=== PATIENT | female | born 1985 | race Caucasian/White ===

== ENCOUNTER 2017-07-24 19:53 | Emergency (ER) | payer OTHER, SELFPAY ==
[2017-07-24 20:09] VITALS: BP 155/88; PULSE 114; RESP 20; TEMP 36.6; O2SAT 99
[2017-07-24 20:12] VITALS: PULSE 114; RESP 20; TEMP 36.6; O2SAT 99; BMI 39.0
--- NOTE | 2017-07-24 20:22 | DI.US.S_ITS ---
PROCEDURE: US PERIPH VENOUS LOW EXTREM LT INDICATIONS: CALF PAIN TECHNIQUE: Real-time imaging, as well as color and pulse Doppler interrogation, were performed of the lower extremity deep veins from the inguinal ligament to the popliteal fossa. COMPARISON: [facility], [facility], 06/01/2017, 21:08. FINDINGS: The deep veins are normally compressible, and free of intraluminal thrombus. Color and pulse Doppler demonstrate normal phasic intraluminal flow. There is normal augmentation response to distal compression maneuver. IMPRESSION: There is no sonographic evidence of deep venous thrombus in the left lower extremity. Dictated by: Ja Morales M.D. on 07/24/2017 at 21:03 Approved by: Ja Morales M.D. on 07/24/2017 at 21:04
--- NOTE | 2017-07-24 20:45 | ED_ITS ---
HPI - Extremity Problem <KELLI Rodríguez - Last Filed: 07/24/17 22:33> General Chief complaint: Extremity Problem,Nontraumatic Stated complaint: BRUISE ON LEFT LEG Time Seen by Provider: 07/24/17 20:11 History of Present Illness HPI Narrative: 32-year-old female approximately 26 weeks 8 para 3 here for complaint of having bruise to the medial aspect of the of left leg. Just distal to the knee. She denies any trauma to the area. She states that she has also had some calf pain over the past couple of days. She reports that she was sent here by her OB for further evaluation as she has elevated platelets and is concerned for blood clot. She denies any prior history of having DVT or PE. She denies any abdominal pain. No vaginal bleeding or discharge. No urinary symptoms. No other concerns or complaints. She denies any shortness of breath or chest pain patient is ambulatory into the emergency room. MD Complaint: extremity pain Location: left and lower extremity Related Data Home Medications Medication Instructions Recorded Confirmed aspirin 81 mg PO QDAY #0 05/07/16 07/24/17 vit-iron fum-folic ac 1 cap PO QDAY #0 03/15/17 07/24/17 [Mynatal] Allergies Allergy/AdvReac Type Severity Reaction Status Date / Time codeine [CODEINE] Allergy Severe SWELLING Verified 07/24/17 20:14 SKIN Review of Systems <KELLI Rodríguez - Last Filed: 07/24/17 22:33> Constitutional Denies chills, Denies fever(s), Denies lethargy and Denies weakness Eyes Denies change in vision, Denies eye discharge, Denies irritation and Denies loss of vision ENT Ears, Nose, Mouth, and Throat: Denies change in voice, Denies neck pain and Denies sore throat Cardiovascular Denies dyspnea and Denies dyspnea on exertion Respiratory Denies cough, Denies dyspnea, Denies dyspnea on exertion and Denies wheezing Genitourinary Denies abnormal vaginal bleeding, Denies hematuria, Denies flank pain, Denies urinary incontinence, Denies urinary urgency and Denies vaginal discharge Musculoskeletal Denies neck pain Comments: Ecchymosis to of left lower leg and left calf pain Integumentary/Breasts Denies pruritus, Denies erythema, Denies rash and Denies wounds Neurologic Denies loss of vision and Denies weakness Allergic/Immunologic Denies wheezing Exam <KELLI Rodríguez - Last Filed: 07/24/17 22:33> Initial Vital Signs Initial Vital Signs: Vital Signs Temperature 97.8 F 07/24/17 20:09 Pulse Rate 114 H 07/24/17 20:09 Respiratory Rate 20 07/24/17 20:09 Blood Pressure 155/88 H 07/24/17 20:09 Pulse Oximetry 99 07/24/17 20:09 Const General: cooperative and well developed Nutritional Appearance: well nourished Orientation: alert, awake, oriented x3 and not confused Eyes Conjunctivae: conjunctivae normal Sclera: sclerae normal Pupils: PERRL EOM: EOM intact bilaterally Resp Effort & Inspection: normal respiratory effort, able to speak in complete sentences, no respiratory distress and no use of accessory muscles Auscultation: clear to auscultation bilaterally, no rales, no rhonchi and no wheezes Cardio Rate: regular rate Rhythm: regular rhythm Heart Sounds: no click, no gallops, no murmurs and no rubs Pulses: dorsalis pedis present GI Palpation: soft, no hepatosplenomegaly, No guarding, No pulsatile mass and No tender Auscultation: normal bowel sounds Skin General: no rashes or lesions noted Extrem Other: 2 cm x 3 cm area ecchymosis to the left medial aspect of the left leg inferior to left knee. No swelling no deformities. Distal sensation is intact. Range of motion is intact. Distal pulses intact. No edema. Homans sign negative. no erythema <Carmelo Segura MD - Last Filed: 07/25/17 03:23> Initial Vital Signs Initial Vital Signs: Vital Signs Temperature 97.8 F 07/24/17 20:09 Pulse Rate 114 H 07/24/17 20:09 Respiratory Rate 20 07/24/17 20:09 Blood Pressure 155/88 H 07/24/17 20:09 Pulse Oximetry 99 07/24/17 20:09 Course <KELLI Rodríguez - Last Filed: 07/24/17 22:33> Orders Ordered: ED Orders 07/24/17 20:22 US periph venous low extrem lt Stat 07/24/17 21:10 Complete Blood Count AUTO DIFF Stat Comprehensive Metabolic Panel Stat Prothrombin Time INR Stat Discontinued Medications Acetaminophen (Tylenol) 650 mg PO NOW ONE Stop: 07/24/17 21:30 Last Admin: 07/24/17 21:33 Dose: 650 mg Vital Signs - 8 hr 07/24/17 20:09 07/24/17 20:12 07/24/17 22:13 Temperature 97.8 F 97.8 F Pulse Rate 114 H 114 H 102 H Respiratory Rate 20 20 18 Blood Pressure [Left Arm] 120/74 Blood Pressure [Right Arm] 155/88 H Pulse Oximetry 99 99 100 <Carmelo Segura MD - Last Filed: 07/25/17 03:23> Orders Ordered: ED Orders 07/24/17 20:22 periph venous low extrem lt Stat 07/24/17 21:10 Complete Blood Count AUTO DIFF Stat Comprehensive Metabolic Panel Stat Prothrombin Time INR Stat Discontinued Medications Acetaminophen (Tylenol) 650 mg PO NOW ONE Stop: 07/24/17 21:30 Last Admin: 07/24/17 21:33 Dose: 650 mg Vital Signs - 8 hr 07/24/17 20:09 07/24/17 20:12 07/24/17 22:13 Temperature 97.8 F 97.8 F Pulse Rate 114 H 114 H 102 H Respiratory Rate 20 20 18 Blood Pressure [Left Arm] 120/74 Blood Pressure [Right Arm] 155/88 H Pulse Oximetry 99 99 100 MDM - Extremity (Nontraumatic) <KELLI Rodríguez - Last Filed: 07/24/17 22:33> Lab Data Result diagrams: 07/24/17 21:10 07/24/17 21:10 Lab Results 07/24/17 07/24/17 07/24/17 Range/Units 21:10 21:10 21:10 WBC 17.9 H (4.5-11.0) X10^3/uL RBC 4.00 (4.0-5.2) X10^6/uL Hgb 11.8 L (12.0-16.0) g/dL Hct 34.5 L (36-46) % MCV 86.4 (80-100) fL MCH 29.6 (26-34) PG MCHC 34.2 (30-36) % RDW 14.2 (11.6-14.8) % Plt Count 448 H (150-400) X10^3/uL Neut % (Auto) 58.3 (50-75) % Lymph % (Auto) 32.1 (25-40) % [place] % (Auto) 6.6 (3-14) % Eos % (Auto) 2.1 (2-4) % Baso % (Auto) 0.9 (0-2) % Neut # (Auto) 06385 H (8420-8697) /uL PT 11.7 (10.1-12.7) SECONDS INR 1.1 (0.9-1.3) Sodium 138 (137-145) mmol/L Potassium 3.5 (3.4-5.1) mmol/L Chloride 104.0 (98-107) mmol/L Carbon Dioxide 22.0 (22-32) mmol/L BUN 5.0 L (7-17) mg/dL Creatinine 0.50 L (0.52-1.04) mg/dL Estimated GFR > 60.0 (>60) mL/min BUN/Creatinine Ratio 10.0 (6-22) Glucose 130 H (70-100) mg/dL Calcium 9.2 (8.4-10.2) mg/dL Total Bilirubin 0.2 (0.2-1.3) mg/dL AST 19 (14-36) IU/L ALT 23 (9-52) IU/L Alkaline Phosphatase 80 (38-126) U/L Total Protein 6.6 (6.3-8.2) g/dL Albumin 3.4 L (3.5-5.0) g/dL Globulin 3.2 (1.7-4.1) g/dL Albumin/Globulin Ratio 1.1 (1.0-2.8) Imaging Data Venous US: Radiologist's impression: PROCEDURE: US PERIPH VENOUS LOW EXTREM LT INDICATIONS: CALF PAIN TECHNIQUE: Real-time imaging, as well as color and pulse Doppler interrogation, were performed of the lower extremity deep veins from the inguinal ligament to the popliteal fossa. COMPARISON: [facility], [facility], 06/01/2017, 21:08. FINDINGS: The deep veins are normally compressible, and free of intraluminal thrombus. Color and pulse Doppler demonstrate normal phasic intraluminal flow. There is normal augmentation response to distal compression maneuver. IMPRESSION: There is no sonographic evidence of deep venous thrombus in the left lower extremity. Dictated by: Ja Morales M.D. on 07/24/2017 at 21:03 Approved by: Ja Morales M.D. on 07/24/2017 at 21:04 [facility] Narrative Medical decision making narrative: Ultrasound of left lower extremity was obtained was negative for any signs of DVT or acute findings. CBC shows elevated white count and platelets however is consistent with her prior levels. Chem panel was obtained and was unremarkable. Urinalysis was negative. heart tones were normal. Signs and symptoms presents as minor ecchymosis to the left lower extremity most likely from a trauma that patient does not remember. She is encouraged to follow up with her primary care provider. Return emergency room for worsening symptoms. <Carmelo Segura MD - Last Filed: 07/25/17 03:23> Lab Data Lab Results 07/24/17 07/24/17 07/24/17 Range/Units 21:10 21:10 21:10 WBC 17.9 H (4.5-11.0) X10^3/uL RBC 4.00 (4.0-5.2) X10^6/uL Hgb 11.8 L (12.0-16.0) g/dL Hct 34.5 L (36-46) % MCV 86.4 (80-100) fL MCH 29.6 (26-34) PG MCHC 34.2 (30-36) % RDW 14.2 (11.6-14.8) % Plt Count 448 H (150-400) X10^3/uL Neut % (Auto) 58.3 (50-75) % Lymph % (Auto) 32.1 (25-40) % [place] % (Auto) 6.6 (3-14) % Eos % (Auto) 2.1 (2-4) % Baso % (Auto) 0.9 (0-2) % Neut # (Auto) 68630 H (2956-4219) /uL PT 11.7 (10.1-12.7) SECONDS INR 1.1 (0.9-1.3) Sodium 138 (137-145) mmol/L Potassium 3.5 (3.4-5.1) mmol/L Chloride 104.0 (98-107) mmol/L Carbon Dioxide 22.0 (22-32) mmol/L BUN 5.0 L (7-17) mg/dL Creatinine 0.50 L (0.52-1.04) mg/dL Estimated GFR > 60.0 (>60) mL/min BUN/Creatinine Ratio 10.0 (6-22) Glucose 130 H (70-100) mg/dL Calcium 9.2 (8.4-10.2) mg/dL Total Bilirubin 0.2 (0.2-1.3) mg/dL AST 19 (14-36) IU/L ALT 23 (9-52) IU/L Alkaline Phosphatase 80 (38-126) U/L Total Protein 6.6 (6.3-8.2) g/dL Albumin 3.4 L (3.5-5.0) g/dL Globulin 3.2 (1.7-4.1) g/dL Albumin/Globulin Ratio 1.1 (1.0-2.8) MDM Narrative Medical decision making narrative: The PA/HEALTHCARE BUSINESS ANALYST functioned independently for the care of this pt, I was available, but not asked to participate in care. I am unable to determine appropriateness of management without personally examining the pt. Discharge Plan Departure Patient Disposition: Home, Self-Care Clinical Impression: Contusion of left leg Discharge Date/Time: 07/25/17 01:03 Interventions: ED Discharge Assessment Last Done: 07/24/17 22:20 Instructions: DI for Contusion Activity Restrictions/Additional Instructions: Ultrasound was negative for any blood clots. CBC shows elevated platelets and white count however is consistent with prior lab values. Other results were unremarkable. Signs and symptoms presents as a minor bruise to the left leg. Follow up with her primary care provider for re-evaluation. Use Tylenol as needed for any discomfort. Return emergency room for any worsening symptoms. Prescriptions: No Action aspirin 81 MG tablet,delayed release (DR/EC) 81 mg PO QDAY Qty: 0 RF: 0 vit-iron fum-folic ac [Mynatal] 1 EACH capsule 1 cap PO QDAY Qty: 0 RF: 0 Referrals: Horacio Boone MD [Primary Care Provider] -
[2017-07-24 21:18] LABS: Add Manual Diff / Slide Review NO; Basophils Percent Auto 0.9 % (0-2); Eosinophils Percent Auto 2.1 % (2-4); Hematocrit 34.5 % (36-46); Hemoglobin 11.8 g/dL (12.0-16.0); Lymphocytes Percent Auto 32.1 % (25-40); Mean Corpuscular HGB Conc 34.2 % (30-36); Mean Corpuscular Hemoglobin 29.6 PG (26-34); Mean Corpuscular Volume 86.4 fL (80-100); Monocytes Percent Auto 6.6 % (3-14); Neutrophils Absolute Auto 10400 /uL (3000-5900); Neutrophils Percent Auto 58.3 % (50-75); Platelet Count 448 X10^3/uL (150-400); Red Cell Distribution Width 14.2 % (11.6-14.8); White Blood Cell Count 17.9 X10^3/uL (4.5-11.0)
[2017-07-24 21:23] LABS: INR 1.1 (0.9-1.3); Prothrombin Time 11.7 SECONDS (10.1-12.7)
--- NOTE | 2017-07-24 21:23 | PC.NURSE ---
Pt has had a sore knee for about a week and noticed a small, quarter sized bruise on the medial aspect of the left knee. Denies any other symptoms other than a headache.
[2017-07-24 21:29] LABS: Alanine Aminotransferase 23 IU/L (9-52); Albumin 3.4 g/dL (3.5-5.0); Albumin Globulin Ratio 1.1 (1.0-2.8); Alkaline Phosphatase 80 U/L (38-126); Aspartate Aminotransferase 19 IU/L (14-36); Bilirubin Total 0.2 mg/dL (0.2-1.3); Calcium 9.2 mg/dL (8.4-10.2); Estimated Glomerular Filt Rate > 60.0 mL/min (>60); Globulin 3.2 g/dL (1.7-4.1); Glucose 130 mg/dL (70-100); HEMOLYSIS < 15 (0-50); Potassium 3.5 mmol/L (3.4-5.1); Sodium 138 mmol/L (137-145); Total Protein 6.6 g/dL (6.3-8.2)
[2017-07-24] MEDS: ACETAMINOPHEN 325 MG TABLET 650 MG PO (21:33)
[2017-07-24 22:13] VITALS: BP 120/74; PULSE 102; RESP 18; O2SAT 100
== END 2017-07-25 01:03 | disposition home or self-care (01) ==
PROVIDERS: Emergency Provider Nurse Practitioner Family
DX: S80.12XA Contusion of left lower leg, initial encounter (principal); Z3A.26 26 weeks gestation of pregnancy
CPT/HCPCS: 80053; 81003; 85025; 85610; 93971; 99283; 99284

== ENCOUNTER 2018-01-31 22:48 | Inpatient (IN) | payer OTHER, SELFPAY ==
[2018-01-31 22:54] VITALS: BP 133/68; PULSE 140; RESP 18; TEMP 37.8; O2SAT 99; BMI 34.0
[2018-01-31] MEDS: SODIUM CHLORIDE 0.9% 1,000 ML 1000 ML IV (23:05)
--- NOTE | 2018-01-31 23:28 | PC.NURSE ---
2 episodes of strep throat in past month, treated with antibiotics. Tonsils appear red and swollen.
[2018-01-31 23:31] LABS: Hematocrit 37.8 % (36-46); Hemoglobin 12.2 g/dL (12.0-16.0); Mean Corpuscular HGB Conc 32.4 % (30-36); Mean Corpuscular Hemoglobin 27.2 PG (26-34); Platelet Count 594 X10^3/uL (150-400); White Blood Cell Count 26.7 X10^3/uL (4.5-11.0)
[2018-01-31 23:33] LABS: Add Manual Diff / Slide Review YES
[2018-01-31 23:43] LABS: Alanine Aminotransferase 36 IU/L (9-52); Albumin 4.1 g/dL (3.5-5.0); Albumin Globulin Ratio 1.2 (1.0-2.8); Alkaline Phosphatase 84 U/L (38-126); Aspartate Aminotransferase 28 IU/L (14-36); Bilirubin Total 0.2 mg/dL (0.2-1.3); Blood Urea Nitrogen 9 mg/dL (7-17); Calcium 9.2 mg/dL (8.4-10.2); Carbon Dioxide 27 mmol/L (22-32); Chloride 101 mmol/L (98-107); Creatine Kinase 34 U/L (30-135); Estimated Glomerular Filt Rate > 60.0 mL/min (>60); Globulin 3.4 g/dL (1.7-4.1); Glucose 151 mg/dL (70-100); HEMOLYSIS < 15 (0-50); Lipase 78 U/L (23-300); Sodium 140 mmol/L (137-145); Total Protein 7.5 g/dL (6.3-8.2)
[2018-01-31 23:50] LABS: Troponin I < 0.012 ng/mL (0.01-0.034)
[2018-01-31 23:53] VITALS: BP 124/56; PULSE 152; O2SAT 97
[2018-01-31 23:58] VITALS: TEMP 38.8
[2018-02-01] VITALS (18 sets, daily range): BP systolic 107–135; BP diastolic 54–79; PULSE 97–142; RESP 14–19; TEMP 36.5–38.8; O2SAT 96–100; BMI 34.0
[2018-02-01] MEDS: ACETAMINOPHEN 325 MG TABLET 650 MG PO ×4 (00:21→22:55)
--- NOTE | 2018-02-01 00:24 | DI.CT.S_ITS ---
PROCEDURE: CT ANGIO CHEST PE PROTOCOL INDICATIONS: CP, SOB, hypoxia TECHNIQUE: After the administration of intravenous contrast, 2 mm thick sections acquired from the pulmonary apices to the posterior costophrenic angles. 3-dimensional maximum intensity projection (MIP) coronal and sagittal reformats were then acquired through the thorax. For radiation dose reduction, the following was used: automated exposure control, adjustment of mA and/or kV according to patient size. COMPARISON: None. FINDINGS: Image quality: Excellent. Pulmonary arteries: Pulmonary arteries are normal in size, and demonstrate no intraluminal filling defects to suggest central pulmonary embolism. Lungs and pleura: Lungs are clear. No pleural effusions or pneumothorax. Central and peripheral airways are patent. Mediastinum: Heart size is normal, without pericardial effusion. No mediastinal or hilar adenopathy. Thoracic aorta is normal in caliber and enhancement. Esophagus is normal in caliber, without hiatal hernia. Bones and chest wall: No suspicious bony lesions. Ribs and thoracic spine appear intact throughout. Thyroid gland and shows visualization of only the right lobe. Within the left thyroid fossa there is what appears to be a lymph node measuring 8 mm in short axis. No priors are available for comparison.. No axillary or supraclavicular adenopathy. Abdomen: Visualized upper abdominal solid organs appear normal in the early arterial phase of enhancement. IMPRESSION: 1. No pulmonary embolism. 2. Lungs are clear. 3. Nonvisualization of the left thyroid lobe which appears to be a lymph node in the thyroid bed. As clinically indicated, thyroid ultrasound may be obtained for additional evaluation. Dictated by: Chelita Dewitt M.D. on 02/01/2018 at 7:55 Approved by: Chelita Dewitt M.D. on 02/01/2018 at 7:58
[2018-02-01 00:49] LABS: Lactate (Lactic Acid) 1.5 mmol/L (0.7-2.1)
[2018-02-01 00:58] LABS: RBC Urine None Seen (0-5/HPF)
[2018-02-01] MEDS: SODIUM CHLORIDE 0.9% 1,000 ML 1000 ML IV ×2 (01:01→03:23)
[2018-02-01] MEDS: KETOROLAC 60 MG/2 ML VIAL 15 MG IV (01:02)
[2018-02-01 01:27] LABS: Bacteria Urine Few (2-10); Culture Indicated Urine Specimen Cultured; Squamous Epithelial Cell Urine 0-1 /HPF; WBC Urine 1-5/HPF (0-5/HPF)
[2018-02-01 01:57] LABS: Anisocytosis 2+
--- NOTE | 2018-02-01 02:06 | ED.SYNCOPE ---
HPI - Syncope General Chief Complaint: Syncope Stated Complaint: Syncope Time Seen by Provider: 01/31/18 23:00 Source: patient and EMS Mode of arrival: EMS Limitations: no limitations History of Present Illness HPI narrative: 32-year-old nonsmoking female presents by EMS for evaluation of a near syncopal episode. The patient was in her normal state of health yesterday and over the course of the day has started feeling very poorly and developed fever and shaking chills. She was so chilled that she decided to take a warm bath and upon exiting the bath she felt even worse, dizzy and lightheaded. She admittedly has had a very poor appetite today and has had very little to eat or drink. She attempted to have a bowel movement and while straining on the toilet felt dizzy and lightheaded and may have briefly syncopized. She called EMS and on their arrival they found her heart rate to be in the 150s. She denies much in the way of specific symptoms such as runny nose, sore throat or cough. She has had no chest pain or shortness of breath and denies nausea or vomiting. She has had 2 episodes of strep in the past month which cause some concern as 1 was not group a. 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 MD complaint: felt faint Onset (ago): hour(s) -: second(s) Prodromal symptoms: none Witnessed: no Current symptoms: lightheaded Treatments prior to arrival: IV fluids Related Data Allergies Allergy/AdvReac Type Severity Reaction Status Date / Time codeine [CODEINE] Allergy Severe SWELLING Verified 07/24/17 20:14 SKIN Review of Systems Review of Systems All systems reviewed & are unremarkable except as noted in HPI and below Constitutional Reports chills, Reports fever(s), Denies lethargy and Reports weakness Eyes Denies change in vision, Denies eye discharge, Denies irritation and Denies loss of vision ENT Ears, Nose, Mouth, and Throat: Denies change in voice, Denies neck pain and Denies sore throat Cardiovascular Denies chest pain, Denies irregular heart rhythm, Denies lightheadedness, Denies palpitations, Denies dyspnea, Denies dyspnea on exertion and Denies orthopnea Respiratory Denies cough, Denies dyspnea, Denies dyspnea on exertion and Denies wheezing Gastrointestinal Gastrointestinal: Denies abdominal pain, Denies change in bowel habits, Denies diarrhea, Denies nausea and Denies vomiting Genitourinary Denies hematuria, Denies flank pain, Denies urinary incontinence and Denies urinary urgency Musculoskeletal Denies neck pain Integumentary/Breasts Denies pruritus, Denies erythema, Denies rash and Denies wounds Neurologic Denies confusion, Denies loss of vision and Reports weakness Psychiatric Denies anxiety, Denies confusion, Denies depression, Denies homicidal ideation and Denies suicidal ideation Endocrine Denies palpitations Hematologic/Lymphatic Denies easy bruising Allergic/Immunologic Denies wheezing [facility] Social History Smoking Status: Never smoker Exam Narrative Exam Narrative: GENERAL: 32-year-old female in good spirits but obviously ill HEAD: Atraumatic. Normocephalic. No temporal or scalp tenderness. EYES: Pupils equal round and reactive. Extraocular motions intact. No scleral icterus. No injection or drainage. ENT: Nose without bleeding, purulent drainage or septal hematoma. Throat without erythema, tonsillar hypertrophy or exudate. Uvula midline. Airway patent. NECK: Trachea midline. No JVD or lymphadenopathy. Supple, nontender, no meningeal signs. CARDIOVASCULAR: Tachycardic and irregular without murmurs, gallops, or rubs. RESPIRATORY: Clear to auscultation. Breath sounds equal bilaterally. No wheezes, rales, or rhonchi. GASTROINTESTINAL: Abdomen soft, non-tender, nondistended. No hepato-splenomegaly, or palpable masses. No guarding. EXTREMITIES: No clubbing, cyanosis, or edema. No joint tenderness, effusion, or edema noted. BACK: Nontender without deformity or crepitance. No flank tenderness. NEURO: AOx3. SKIN: No rash or erythema. Initial Vital Signs Initial Vital Signs: Vital Signs Temperature 100.1 F H 01/31/18 22:54 Pulse Rate 140 H 01/31/18 22:54 Respiratory Rate 18 01/31/18 22:54 Blood Pressure 133/68 01/31/18 22:54 Pulse Oximetry 99 01/31/18 22:54 Course Orders Ordered: ED Orders 01/31/18 23:00 EKG-12 Lead Stat 01/31/18 23:15 Complete Blood Count AUTO DIFF Stat Comprehensive Metabolic Panel Stat Lipase Stat Troponin & CK Cardiac Panel Stat 01/31/18 23:57 Urine Culture Stat 02/01/18 00:24 CT angio chest PE protocol Stat 02/01/18 00:27 Lactate (Lactic Acid) Stat 02/01/18 00:30 Blood Culture Stat 02/01/18 00:51 Urine Microscopic Stat 02/01/18 02:51 FLU A and B [Influenza A and B by PCR Rapid] Stat 02/01/18 04:10 Consult to Discharge Planning Routine 02/01/18 06:00 Basic Metabolic Panel DAILY Complete Blood Count AUTO DIFF DAILY HCG Quantitative Routine 02/02/18 06:00 Basic Metabolic Panel DAILY Complete Blood Count AUTO DIFF DAILY 02/03/18 06:00 Basic Metabolic Panel DAILY Complete Blood Count AUTO DIFF DAILY Enoxaparin Sodium (Lovenox) 40 mg SUBCUT DAILY RUSH Sodium Chloride (Normal Saline 0.9%) 1,000 mls @ 150 mls/hr IV CONT RUSH Last Infusion: 02/01/18 00:08 Dose: 0 mls/hr Admin: 01/31/18 23:05 Dose: 1,000 mls/hr Ondansetron HCl (Zofran) 4 mg IV Q8HR PRN PRN Reason: Nausea And Vomiting Discontinued Medications Acetaminophen (Tylenol) 650 mg PO NOW ONE Stop: 02/01/18 00:19 Last Admin: 02/01/18 00:21 Dose: 650 mg Sodium Chloride (Normal Saline 0.9%) 1,000 mls @ 1,000 mls/hr IV BOLUS ONE Stop: 02/01/18 01:22 Last Infusion: 02/01/18 02:45 Dose: 0 mls/hr Admin: 02/01/18 01:01 Dose: 1,000 mls/hr Ceftriaxone Sodium/Dextrose (Rocephin) 1 gm in 50 mls @ 100 mls/hr IV NOW ONE Stop: 02/01/18 02:31 Last Infusion: 02/01/18 03:17 Dose: 0 mls/hr Admin: 02/01/18 02:30 Dose: 100 mls/hr Vancomycin HCl 1,500 mg/ (Sodium Chloride) 500 mls @ 333.333 mls/hr IV NOW ONE Stop: 02/01/18 02:07 Last Infusion: 02/01/18 04:30 Dose: 0 mls/hr Admin: 02/01/18 03:43 Dose: 333.333 mls/hr Sodium Chloride (Normal Saline 0.9%) 1,000 mls @ 1,000 mls/hr IV BOLUS ONE Stop: 02/01/18 03:44 Last Infusion: 02/01/18 04:46 Dose: 1,000 mls/hr Admin: 02/01/18 03:23 Dose: 1,000 mls/hr Ketorolac Tromethamine (Toradol) 15 mg IV NOW ONE Stop: 02/01/18 00:24 Last Admin: 02/01/18 01:02 Dose: 15 mg Reevaluation(s) Reevaluation #1: patient states she is often tachycardic in the 110s and 120s and that her WBC count is routinely high. She's been evaluated by her PCP, but is unclear of any ongoing diagnoses. She had fever, tachycardia, and elevated WBCs, but never met criteria for severe sepsis Consultations Consultation #1: Project Landscape Architect is happy to accept Vital Signs - 8 hr 01/31/18 22:54 01/31/18 23:53 01/31/18 23:58 Temperature 100.1 F H 101.8 F H Pulse Rate 140 H 152 H Respiratory Rate 18 Blood Pressure 133/68 Blood Pressure [Left Arm] 124/56 L Pulse Oximetry 99 97 02/01/18 00:21 02/01/18 01:02 02/01/18 01:12 Temperature 101.8 F H 101.4 F H Pulse Rate 142 H Respiratory Rate 17 Blood Pressure Blood Pressure [Left Arm] 120/66 Pulse Oximetry 96 02/01/18 02:02 02/01/18 03:23 02/01/18 03:30 Temperature 98.8 F 98.8 F Pulse Rate 135 H 130 H Respiratory Rate 17 14 Blood Pressure Blood Pressure [Left Arm] 110/54 L 114/55 L Pulse Oximetry 97 97 MDM - Syncope Lab Data Attestation: I reviewed the patient's lab results. Result diagrams: 01/31/18 23:15 01/31/18 23:15 Lab Results 01/31/18 01/31/18 01/31/18 Range/Units 23:15 23:15 23:57 WBC 26.7 H (4.5-11.0) X10^3/uL RBC 4.50 (4.0-5.2) X10^6/uL Hgb 12.2 (12.0-16.0) g/dL Hct 37.8 (36-46) % MCV 84.0 (80-100) fL MCH 27.2 (26-34) PG MCHC 32.4 (30-36) % RDW 15.0 H (11.6-14.8) % Plt Count 594 H (150-400) X10^3/uL Neut % (Auto) Not Reportable Lymph % (Auto) Not Reportable [place] % (Auto) Not Reportable Eos % (Auto) Not Reportable Baso % (Auto) Not Reportable Seg Neutrophils % 82.0 H (38-70) % Lymphocytes % (Manual) 13.0 L (25-45) % Monocytes % (Manual) 3.0 (2-11) % Eosinophils % (Manual) 1.0 L (2-4) % Basophils % (Manual) 1.0 (0-1) % RBC Morphology See below Anisocytosis 2+ H Sodium 140 (137-145) mmol/L Potassium 4.0 (3.4-5.1) mmol/L Chloride 101 (98-107) mmol/L Carbon Dioxide 27 (22-32) mmol/L BUN 9 (7-17) mg/dL Creatinine 0.60 (0.52-1.04) mg/dL Estimated GFR > 60.0 (>60) mL/min BUN/Creatinine Ratio 15.0 (6-22) Glucose 151 H (70-100) mg/dL Lactate (0.7-2.1) mmol/L Calcium 9.2 (8.4-10.2) mg/dL Total Bilirubin 0.2 (0.2-1.3) mg/dL AST 28 (14-36) IU/L ALT 36 (9-52) IU/L Alkaline Phosphatase 84 (38-126) U/L Total Creatine Kinase 34 (30-135) U/L CK-MB (CK-2) TNP CK-MB (CK-2) Rel Index TNP Troponin I < 0.012 (0.01-0.034) ng/mL Total Protein 7.5 (6.3-8.2) g/dL Albumin 4.1 (3.5-5.0) g/dL Globulin 3.4 (1.7-4.1) g/dL Albumin/Globulin Ratio 1.2 (1.0-2.8) Lipase 78 (23-300) U/L Urine RBC None seen (0-5/HPF) Urine WBC 1-5/hpf (0-5/HPF) Ur Squamous Epith Cells 0-1 /hpf Urine Bacteria Few (2-10) H (None) Ur Culture Indicated? Specimen cultured Micro UA Comment Not Reportable Influenza A & B (PCR) (Negative) 02/01/18 02/01/18 Range/Units 00:27 02:51 WBC (4.5-11.0) X10^3/uL RBC (4.0-5.2) X10^6/uL Hgb (12.0-16.0) g/dL Hct (36-46) % MCV (80-100) fL MCH (26-34) PG MCHC (30-36) % RDW (11.6-14.8) % Plt Count (150-400) X10^3/uL Neut % (Auto) Lymph % (Auto) [place] % (Auto) Eos % (Auto) Baso % (Auto) Seg Neutrophils % (38-70) % Lymphocytes % (Manual) (25-45) % Monocytes % (Manual) (2-11) % Eosinophils % (Manual) (2-4) % Basophils % (Manual) (0-1) % RBC Morphology Anisocytosis Sodium (137-145) mmol/L Potassium (3.4-5.1) mmol/L Chloride (98-107) mmol/L Carbon Dioxide (22-32) mmol/L BUN (7-17) mg/dL Creatinine (0.52-1.04) mg/dL Estimated GFR (>60) mL/min BUN/Creatinine Ratio (6-22) Glucose (70-100) mg/dL Lactate 1.5 (0.7-2.1) mmol/L Calcium (8.4-10.2) mg/dL Total Bilirubin (0.2-1.3) mg/dL AST (14-36) IU/L ALT (9-52) IU/L Alkaline Phosphatase (38-126) U/L Total Creatine Kinase (30-135) U/L CK-MB (CK-2) CK-MB (CK-2) Rel Index Troponin I (0.01-0.034) ng/mL Total Protein (6.3-8.2) g/dL Albumin (3.5-5.0) g/dL Globulin (1.7-4.1) g/dL Albumin/Globulin Ratio (1.0-2.8) Lipase (23-300) U/L Urine RBC (0-5/HPF) Urine WBC (0-5/HPF) Ur Squamous Epith Cells Urine Bacteria (None) Ur Culture Indicated? Micro UA Comment Influenza A & B (PCR) Negative (Negative) Point of Care Testing Rapid Strep A Negative Glucose POC 154 Urine Dip Bedside Urine Glucose Negative Bedside Urine Bilirubin - Negative Bedside Urine Ketone - Negative Urine Specific [place] 1.010 Bedside Urine Occult Blood + Bedside Urine pH 7.5 Bedside Urine Protein - Negative Bedside Urine Urobilinogen - Negative Bedside Urine Nitrite - Negative Bedside Urine Leukocytes - Negative Esterase Imaging Data CT scan - chest: Radiologist's impression: No PE Discharge Plan Departure Interventions: ED Discharge Assessment Last Done: 02/01/18 04:49 Admit Date/Time: 02/01/18 03:42 Admit Provider: Lina Noyola
[2018-02-01] MEDS: CEFTRIAXONE 1 GM/50 ML FROZ.PIGGY IV (02:30)
[2018-02-01 03:09] LABS: Influenza A and B by PCR Rapid Negative (Negative)
[2018-02-01] MEDS: VANCOMYCIN 1,500 MG in SODIUM CHLORIDE 0.9% 500 ML 333.333 ML IV (03:43)
--- NOTE | 2018-02-01 03:48 | PC.NURSE ---
patient given 118ml of Grape juice and ice. provider ok with patient having something to drink. no new orders at this time.
--- NOTE | 2018-02-01 03:54 | PC.NURSE ---
patient given 118ml of grape juice. provider ok with patient to have something to drink. no new orders at this time.
--- NOTE | 2018-02-01 04:51 | PM.HP.1 ---
History of Present Illness Date Patient Seen: 02/01/18 Chief complaint: Syncope Narrative: PMH: splenic artery aneurysm 09/2013, h/o complicatd pregnancies (, stillbirth 1, miscarriage 2), h/o ectopic , thrombocytosis, iron deficiency anemia, gestational diabetes, obesity (BMI 34) PSH: splenectomy, cholecystectomy, x4, D&C The patient is a 32-year-old female who presented to the ED on 01/31/2018 at 2030 after experiencing a syncopal event. The event may have been witnessed by patient's , however she is not entirely sure. Prior to the event patient is taking a hot shower. Reports brief loss of consciousness. Syncopal event occurred while patient was attempting to defecate. Associated symptoms include nausea, sore throat, fever (102.1), and generalized malaise. Onset of associated symptoms is acute, started this morning. No injury to the head. No loss of bowel or bladder control. No history of seizures. No post event confusion or disorientation. No syncopal events in the past. In the past month patient was treated for two episodes of strep throat. At the end of December with a 10 day course of penicillin and once again, 2 weeks later, with a course of Augmentin. Patient reports adherence to oral antibiotic course. Patient does not have a history of recurrent pharyngitis. She is immunocompromised in the setting of a splenectomy. Patient has 4 children at home ages 3 months and 4, 10, and 16 y.o. will attend daycare. Patient's 4-year-old has been ill since Friday. No recent travel. Patient denies cough, conjunctivitis, rhinorrhea, dental infections, chest pain, pleurisy, exertional dyspnea, abdominal pain, gastrointestinal distress, myalgias, myopathy, or new rash. Status 3 months post-. She has had a 3 months ago, incision is approximated and well healed w/o s/s of an infection. Recently this past week patient has been packing, the family is getting ready to move to [place]. Reports some exposure to dust. Does not recall exposure to mold or other potential toxic organisms. Patient History Family & Social History Safety & Behavioral: Feels Safe in Current Yes Environment Tobacco & Substance use: Smoking Status Never smoker alcohol intake frequency 0-2 drinks per day Substance Use Type does not use Meds Allergies Allergy/AdvReac Type Severity Reaction Status Date / Time codeine [CODEINE] Allergy Severe SWELLING Verified 07/24/17 20:14 SKIN Review of Systems Review of Systems All systems reviewed & are unremarkable except as noted in HPI and below Exam Vital Signs (past 8 hours): - 01/31/18 22:54 01/31/18 23:53 01/31/18 23:58 Temperature 100.1 F H 101.8 F H Pulse Rate 140 H 152 H Respiratory Rate 18 Blood Pressure 133/68 Blood Pressure [Left Arm] 124/56 L Pulse Oximetry 99 97 02/01/18 00:21 02/01/18 01:02 02/01/18 01:12 Temperature 101.8 F H 101.4 F H Pulse Rate 142 H Respiratory Rate 17 Blood Pressure Blood Pressure [Left Arm] 120/66 Pulse Oximetry 96 02/01/18 02:02 02/01/18 03:23 02/01/18 03:30 Temperature 98.8 F 98.8 F Pulse Rate 135 H 130 H Respiratory Rate 17 14 Blood Pressure Blood Pressure [Left Arm] 110/54 L 114/55 L Pulse Oximetry 97 97 Oxygen Delivery Method Room Air Narrative Exam Narrative: Constitutional: NAD Neurologic: AOx3, no focal neurological deficits Head: NC, AT Eyes: Pupils equal and reactive, gaze conjugate, no conjunctivitis Ears: external ears normal, no otorrhea Nose: external nose normal, no rhinorrhea or epistaxis Throat: DRY MM, oropharynx inflamed / erythema (no overt drainage) Neck: Lymphadenopathy, anterior cervical Chest / Respiratory: equal chest rise, unlabored respiratory effort, no tachypnea, CTAB Heart / CV: S1S2, no murmur Abdomen / GI: round, NT, ND, + BS, no organomegaly, incision approximated and well healed no S/S of an infection : no suprapubic tenderness, no CVA Peripheral / Vascular: warm to touch, DP and PT pulses palpable, no edema Musc: full ROM of upper and lower extremities, adequate muscle tone and bulk Skin: no ecchymosis or rashes Objective Labs Result Diagrams: 01/31/18 23:15 01/31/18 23:15 Labs: Laboratory Results - last 24 hr 01/31/18 01/31/18 01/31/18 23:15 23:15 23:57 WBC 26.7 H RBC 4.50 Hgb 12.2 Hct 37.8 MCV 84.0 MCH 27.2 MCHC 32.4 RDW 15.0 H Plt Count 594 H Neut % (Auto) Not Reportable Lymph % (Auto) Not Reportable [place] % (Auto) Not Reportable Eos % (Auto) Not Reportable Baso % (Auto) Not Reportable Seg Neutrophils % 82.0 H Lymphocytes % (Manual) 13.0 L Monocytes % (Manual) 3.0 Eosinophils % (Manual) 1.0 L Basophils % (Manual) 1.0 RBC Morphology See below Anisocytosis 2+ H Sodium 140 Potassium 4.0 Chloride 101 Carbon Dioxide 27 BUN 9 Creatinine 0.60 Estimated GFR > 60.0 BUN/Creatinine Ratio 15.0 Glucose 151 H Lactate Calcium 9.2 Total Bilirubin 0.2 AST 28 ALT 36 Alkaline Phosphatase 84 Total Creatine Kinase 34 CK-MB (CK-2) TNP CK-MB (CK-2) Rel Index TNP Troponin I < 0.012 Total Protein 7.5 Albumin 4.1 Globulin 3.4 Albumin/Globulin Ratio 1.2 Lipase 78 Urine RBC None seen Urine WBC 1-5/hpf Ur Squamous Epith Cells 0-1 /hpf Urine Bacteria Few (2-10) H Ur Culture Indicated? Specimen cultured Micro UA Comment Not Reportable Influenza A & B (PCR) 02/01/18 02/01/18 00:27 02:51 WBC RBC Hgb Hct MCV MCH MCHC RDW Plt Count Neut % (Auto) Lymph % (Auto) [place] % (Auto) Eos % (Auto) Baso % (Auto) Seg Neutrophils % Lymphocytes % (Manual) Monocytes % (Manual) Eosinophils % (Manual) Basophils % (Manual) RBC Morphology Anisocytosis Sodium Potassium Chloride Carbon Dioxide BUN Creatinine Estimated GFR BUN/Creatinine Ratio Glucose Lactate 1.5 Calcium Total Bilirubin AST ALT Alkaline Phosphatase Total Creatine Kinase CK-MB (CK-2) CK-MB (CK-2) Rel Index Troponin I Total Protein Albumin Globulin Albumin/Globulin Ratio Lipase Urine RBC Urine WBC Ur Squamous Epith Cells Urine Bacteria Ur Culture Indicated? Micro UA Comment Influenza A & B (PCR) Negative Assessment & Plan Plan: Assessment/Plan Narrative: Syncope Trop, CK, lactate WNL. CTA negative for PE. Likely vasovagal in the setting of acute illness. Recently being treated for strep throat. Denies symptoms consistent with endocarditis. - tele monitoring - orthostatic BP - echocardiogram - IV fluids Pharyngitis Flu A/B negative. Recently treated for pharyngitis with penicillin and Augmentin. Recurrence, despite ABX treatment. Concern for treatment failure. Not clear of throat cx results second time. Viral etiology ? Ddx: Viral pharyngitis, Infectious mononucleosis, acute retroviral syndrome - throat culture, EBV panel, mono test - throat culture may be negative given recent ABX treatment, will check ASO antibody - blood culture and urine culture pending - IVF , supportive care Tachycardia Presented with tachycardia with heart rate in 140s. 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 No specific abnormalities noted. Tachycardia is associated with febrile state and dehydration. - IVF Full code. No formal health directive. Designates her as his surrogate decision maker. Home medications reviewed and reconciled accordingly.
--- NOTE | 2018-02-01 06:41 | PC.NURSE ---
Pt arrived at 0440 via stretcher. A&OX3. LS: clear, btx4, PP++. pt on cont pulse ox 97%. pt able to ambulate SBA. denied any pain. Throat culture sent to lab. Oriented pt to the room. IV abx infusing. call light in reach. bed alarm active.
[2018-02-01 06:47] LABS: Hematocrit 34.9 % (36-46); Hemoglobin 11.2 g/dL (12.0-16.0); Mean Corpuscular HGB Conc 32.1 % (30-36); Mean Corpuscular Hemoglobin 27.3 PG (26-34); Mean Corpuscular Volume 85.2 fL (80-100); Platelet Count 531 X10^3/uL (150-400); Red Cell Distribution Width 14.8 % (11.6-14.8); White Blood Cell Count 28.6 X10^3/uL (4.5-11.0)
[2018-02-01 06:53] LABS: Blood Urea Nitrogen 5 mg/dL (7-17); Calcium 8.5 mg/dL (8.4-10.2); Carbon Dioxide 22 mmol/L (22-32); Chloride 109 mmol/L (98-107); Estimated Glomerular Filt Rate > 60.0 mL/min (>60); Glucose 107 mg/dL (70-100); HEMOLYSIS < 15 (0-50); Potassium 3.7 mmol/L (3.4-5.1); Sodium 141 mmol/L (137-145)
[2018-02-01 06:55] LABS: Add Manual Diff / Slide Review YES
[2018-02-01 07:11] LABS: HCG Quantitative /Beta subunit < 2.39 mIU/mL
[2018-02-01 07:15] LABS: Neutrophils Absolute Manual 20020 /uL (3000-5900); Total Cells Counted 100
[2018-02-01 07:16] LABS: Hypochromasia 1+
[2018-02-01 07:28] LABS: Monotest Negative (Negative)
[2018-02-01] MEDS: ENOXAPARIN 40 MG/0.4 ML SYRINGE SUBCUT (08:34)
--- NOTE | 2018-02-01 09:02 | CM.DANOTE ---
DCP: Case received, EMR reviewed and met with patient. Introduced self and role. DCP template completed with information currently available. Patient is a 32 year old female who admitted early this morning to the care of the hospitalist team. PCP: Dr. Boone. Payer: confirmed: [employer]. Patient alert, teary, did not want to speak. Introduced self and put name on board. Noting history, patient lives in [place] with , who is active duty. Patient and family packing and getting ready to move to [place]. Patient has 4 children at home, from 4 months, 4,10, and 16. Children have been going to day care as well. Patient came to hospital via ambulance due to a syncope episode. Patient has history of splenectomy, in which she has been immuno-compromised. Was also recently treated for Pharangytis, and has been on antibiotics. Patient may also have had vaso-vagal episode, according to notes, for this had happened while she was having bowel movement. P: DCP to continue to follow closely as plan unfolds. Will continue to reach out to patient for any resources that she may need before discharge. Sarina Manley RN/[employer]
[2018-02-01] MEDS: SODIUM CHLORIDE 0.9% 1,000 ML 150 ML IV ×2 (09:59→17:21)
[2018-02-01 13:45] LABS: Strep Grp A by PCR Rapid Negative
[2018-02-01] MEDS: VANCOMYCIN 1,000 MG/200 ML FROZ.PIGGY 200 MG IV ×2 (14:44→19:59)
[2018-02-01] MEDS: diphenhydrAMINE 25 MG TABLET PO (23:09)
[2018-02-02] MEDS: CEFTRIAXONE 1 GM/50 ML FROZ.PIGGY IV (00:16)
[2018-02-02] MEDS: VANCOMYCIN 1,000 MG/200 ML FROZ.PIGGY 200 MG IV ×2 (01:31→09:40)
[2018-02-02 03:40] VITALS: BP 119/73; PULSE 99; RESP 18; TEMP 36.6; O2SAT 97
[2018-02-02 04:00] VITALS: O2SAT 95
--- NOTE | 2018-02-02 04:31 | PC.NURSE ---
Pt is A and O x 4, VSS, afebrile, WBC = 28.6. Pt states her son is ill at home and she has a compromised immune system due to spleenectomy. She is tolerating IV ABOs well. She reports no dizziness since admit.
[2018-02-02 07:30] VITALS: BP 133/73; PULSE 104; RESP 16; TEMP 36.5; O2SAT 97
[2018-02-02] MEDS: ENOXAPARIN 40 MG/0.4 ML SYRINGE SUBCUT (08:23)
[2018-02-02] MEDS: LACTOBACILLUS ACIDOPHILUS TABLET 1 EACH PO (08:23)
[2018-02-02] MEDS: ACETAMINOPHEN 325 MG TABLET 650 MG PO (08:24)
[2018-02-02 08:26] VITALS: O2SAT 98
[2018-02-02 08:50] LABS: Add Manual Diff / Slide Review NO; Basophils Percent Auto 2.2 % (0-2); Eosinophils Percent Auto 5.2 % (2-4); Hematocrit 36.3 % (36-46); Hemoglobin 12.1 g/dL (12.0-16.0); Lymphocytes Percent Auto 29.5 % (25-40); Mean Corpuscular HGB Conc 33.4 % (30-36); Mean Corpuscular Hemoglobin 28.1 PG (26-34); Monocytes Percent Auto 7.7 % (3-14); Neutrophils Absolute Auto 9900 /uL (3000-5900); Neutrophils Percent Auto 55.4 % (50-75); Platelet Count 546 X10^3/uL (150-400); Red Blood Cell Count 4.32 X10^6/uL (4.0-5.2); Red Cell Distribution Width 14.8 % (11.6-14.8); White Blood Cell Count 17.8 X10^3/uL (4.5-11.0)
[2018-02-02 09:08] LABS: BUN Creatinine Ratio 7.5 (6-22); Blood Urea Nitrogen 3 mg/dL (7-17); Calcium 8.9 mg/dL (8.4-10.2); Carbon Dioxide 27 mmol/L (22-32); Chloride 106 mmol/L (98-107); Estimated Glomerular Filt Rate > 60.0 mL/min (>60); Glucose 97 mg/dL (70-100); HEMOLYSIS < 15 (0-50); Potassium 3.5 mmol/L (3.4-5.1); Sodium 144 mmol/L (137-145)
[2018-02-02 09:19] LABS: Vancomycin Trough 11.5 ug/mL (10-20)
[2018-02-02] MEDS: SODIUM CHLORIDE 0.9% 1,000 ML 150 ML IV (09:33)
--- NOTE | 2018-02-02 10:46 | PC.NURSE ---
Addendum entered by Khadra Morales R.N. 02/02/18 15:40: Discharge: Late entry- Tele dc'd, IV dc'd intact. Reviewed all d/c instructions thoroughly. Given scripts for Bactrim and Azithromycin- instructed to fill and take as directed (and until all gone). Patient aware that she needs to have her PCP follow up on culture results within 24-48 hours (so they can adjust her antibiotics if needed). Verbalized understanding of all instructions and stated no further questions. Wheeled out to private vehicle accompanied by nursing staff. All personal belongings sent with patient at discharge. Original Note: Shift summary: Awake and alert, oriented X3. VSS. Afebrile. Denies dizziness, lightheadedness, SOB or chest pain. Denies difficulty or pain with urination. Tolerating diet without N/V. Medicated with Tylenol for C/O headache. WBC down to 17.8 (from 28.6). Steady on feet, calls for SBA with ambulation. Light and belongings within reach. She is hoping she may get to go home today, still waiting on MD to make rounds.
[2018-02-02 12:16] VITALS: BP 134/90; PULSE 98; RESP 16; TEMP 36.7; O2SAT 100
--- NOTE | 2018-02-02 13:09 | P.DS_ITS ---
History of Present Illness Date Patient Seen: 02/02/18 Time Patient Seen: 13:00 Chief complaint: Syncope Narrative: History of Present Illness Date Patient Seen: 02/01/18 Chief complaint: Syncope Narrative: PMH: splenic artery aneurysm 09/2013, h/o complicatd pregnancies (, stillbirth 1, miscarriage 2), h/o ectopic , thrombocytosis, iron deficiency anemia, gestational diabetes, obesity (BMI 34) PSH: splenectomy, cholecystectomy, x4, D&C The patient is a 32-year-old female who presented to the ED on 2017 at 2030 after experiencing a syncopal event. The event may have been witnessed by patient's , however she is not entirely sure. Prior to the event patient is taking a hot shower. Reports brief loss of consciousness. Syncopal event occurred while patient was attempting to defecate. Associated symptoms include nausea, sore throat, fever (102.1), and generalized malaise. Onset of associated symptoms is acute, started this morning. No injury to the head. No loss of bowel or bladder control. No history of seizures. No post event confusion or disorientation. No syncopal events in the past. In the past month patient was treated for two episodes of strep throat. At the end of December with a 10 day course of penicillin and once again, 2 weeks later , with a course of Augmentin. Patient reports adherence to oral antibiotic course. Patient does not have a history of recurrent pharyngitis. She is immunocompromised in the setting of a splenectomy. Patient has 4 children at home ages 3 months and 4, 10, and 16 y.o. will attend daycare. Patient's 4-year -old has been ill since Friday. No recent travel. Patient denies cough, conjunctivitis, rhinorrhea, dental infections, chest pain, pleurisy, exertional dyspnea, abdominal pain, gastrointestinal distress, myalgias, myopathy, or new rash. Status 3 months post-. She has had a 3 months ago, incision is approximated and well healed w/o s/s of an infection. Recently this past week patient has been packing, the family is getting ready to move to [place]. Reports some exposure to dust. Does not recall exposure to mold or other potential toxic organisms. Discharge Providers Date of admission: 02/01/18 03:42 Primary care physician: Horacio Boone MD Consults: 02/01/18 04:10 Consult to Discharge Planning Routine Comment: Discharge provider: Mari Welch DO Discharge Date: 02/02/18 Summary Discharge Diagnosis: UTI. GRAM-NEGATIVE BACILLI WAS SEEN ON CULTURE LIKELY E COLI. FIVE DIABETES. GROUP C STREPTOCOCCUS. PATIENT DISCHARGED ON ANTIBIOTICS TACHYCARDIA; RESOLVED OBESITY OUTPATIENT MANAGEMENT LEUKOCYTOSIS IMPROVED THROMBOCYTOSIS. HISTORY OF PREVIOUS SPLENECTOMY IRON DEFICIENCY ANEMIA Hospital Course: PATIENT IS A VERY PLEASANT 32-YEAR-OLD FEMALE WHO APPARENTLY RECENTLY GAVE TO A GO. PATIENT PRESENTED TO HOSPITAL AFTER WHAT WAS REPORTED A PRESYNCOPAL EPISODE. WE DETERMINED THAT THIS WAS LIKELY DUE TO UTI. GRAM-NEGATIVE IS GOING TO CULTURE. SHE HAD SIGNIFICANT LEUKOCYTOSIS WHICH HAD IMPROVED AT THIS TIME. SHE HOWEVER REQUESTED TO BE DISCHARGED FROM THE HOSPITAL BECAUSE SHE HAD IS ALERT CHILD AT HOME. SHE NEEDED TO TAKE CARE OF. FOR FAMILY ALSO WAS IN THE PROCESS OF MOVING TO [place]. SHE APPEARED TO BE STABLE. NO FEVER REPORTED. SHE WAS DISCHARGED ON 2 ANTIBIOTICS FOR 10 DAYS. SHE NEEDS TO FOLLOW UP WITH HER PRIMARY CARE PHYSICIAN IN THE NEXT FEW DAYS. SHE WAS RECOMMENDED TO FOLLOW UP WITH HER PRIMARY CARE IN ORDER TO OBTAIN HER FINAL CULTURE AND ADJUST ANTIBIOTICS INDICATED Status at Discharge Cognitive/behavioral status at discharge: STABLE TO HOME Functional status at discharge: independent ambulation Overall status at discharge: patient is back to baseline Time Spent with Patient Greater than 30 minutes Exam Vital Signs (past 8 hours): - 02/02/18 07:30 02/02/18 08:26 02/02/18 12:16 Temperature 97.7 F 98.1 F Pulse Rate 104 H 98 H Respiratory Rate 16 16 Blood Pressure 133/73 134/90 Pulse Oximetry 97 98 100 Oxygen Delivery Method Room Air Oxygen Flow Rate 0 Const General: cooperative, healthy appearing, comfortable and other (POOR DENTITION) Nutritional Appearance: obese HENMT Head: normal to inspection, normocephalic and atraumatic Nose: external nose normal Face and sinus: normal facial exam Eyes General: appearance normal, both eyes and all related structures Alignment and Position: alignment normal and position normal Conjunctivae: conjunctivae normal Sclera: sclerae normal Pupils: PERRL Neck Neck: normal visual inspection, full ROM, no meningeal signs, trachea midline and supple Thyroid: thyroid normal Resp Effort & Inspection: normal respiratory effort and able to speak in complete sentences Auscultation: clear to auscultation bilaterally and diminished lung sounds (AT THE BASES ) Cardio Palpation: normal PMI Rate: regular rate Heart Sounds: S1 normal and S2 normal GI Inspection: normal to inspection and obesity Palpation: soft and no hepatosplenomegaly Percussion: normal to percussion Auscultation: normal bowel sounds General: bimanual renal exam normal bilaterally External Female Exam: external appearance normal Speculum Exam - Vagina: normal appearance of the vagina Back/Spine/Pelvis Back: normal to inspection Cervical Spine: normal cervical lordosis Thoracic/Lumbar Spine: thoracic and lumbar spine normal to inspection Skin General: no rashes or lesions noted, elasticity normal and turgor normal Lesions: no lesions Rashes: no rashes Neuro General: alert, awake, oriented x3, gait normal and CN's II-XI intact bilaterally Gait: normal gait Extrem General: normal to inspection and no joint enlargement Right upper extremity: normal to inspection, full ROM and no joint enlargement Psych Appearance: grossly normal Mental Status: mental status grossly normal Thought Process: normal Judgment: judgment good Objective Labs Result Diagrams: 02/02/18 08:16 02/02/18 08:16 Labs: Laboratory Results - last 24 hr 02/01/18 02/02/18 02/02/18 13:15 08:16 08:16 WBC 17.8 H RBC 4.32 Hgb 12.1 Hct 36.3 MCV 84.0 MCH 28.1 MCHC 33.4 RDW 14.8 Plt Count 546 H Neut % (Auto) 55.4 Lymph % (Auto) 29.5 [place] % (Auto) 7.7 Eos % (Auto) 5.2 H Baso % (Auto) 2.2 H Neut # (Auto) 9900 H Sodium Potassium Chloride Carbon Dioxide BUN Creatinine Estimated GFR BUN/Creatinine Ratio Glucose Calcium Vancomycin Trough 11.5 Group A Strep (PCR) Negative Group B Strep (PCR) Cancelled 02/02/18 08:16 WBC RBC Hgb Hct MCV MCH MCHC RDW Plt Count Neut % (Auto) Lymph % (Auto) [place] % (Auto) Eos % (Auto) Baso % (Auto) Neut # (Auto) Sodium 144 Potassium 3.5 Chloride 106 Carbon Dioxide 27 BUN 3 L Creatinine 0.40 L Estimated GFR > 60.0 BUN/Creatinine Ratio 7.5 Glucose 97 Calcium 8.9 Vancomycin Trough Group A Strep (PCR) Group B Strep (PCR) Discharge Plan Discharge Plan Patient Disposition: Home Discharge comment: dc home act as [facility]itch cardiac diet f/u with pcp 3-10 days as needed no tobacco or etoh products Discharge Med Rec/Prescriptions Prescriptions: New amoxicillin-pot clavulanate [Augmentin] 875-125 mg tablet 1 tab PO Q12H 10 Days Qty: 20 RF: 0 azithromycin 500 mg tablet 500 mg PO DAILY 7 Days RF: 0 Continue No Known Home Medications RF: 0 Follow up/Referrals: Horacio Boone MD [Primary Care Provider] - (Follow up with your primary care provider after discharge from hospital. Please make sure that your PCP calls [facility] to check on the final culture results before you leave [facility] (that way they can make adjustments, if needed, to the antibiotics you are on. ) Provider Discharge Instructions Diet: Low-fat and Low-cholesterol Visit Report/Discharge Packet Instructions: DI for Syncope in Adults (Fainting), Heart-Healthy Diet, Fat- Restricted Diet, DI for Strep Throat, Amoxicillin and Clavulanic Acid, Azithromycin Visit Report Forms: Stroke Signs & Symptoms Discharge Data Primary Care Provider: Horacio Boone Attending Provider: Lina Noyola Admit Date/Time: 02/01/18 03:42 Discharges patient from system. Discharge Date/Time: 02/02/18 15:46
[2018-02-03 14:55] LABS: EBV Virus IgM Ab < 36.00 U/mL (< 36.00)
[2018-02-04 13:14] LABS: Anti-Streptolysin O Antibody 933 IU/mL (< 200)
== END 2018-02-02 15:46 | disposition home or self-care (01) | DRG 690 ==
LOC: ED 23:02 → AC 02-01 03:43
PROVIDERS: Admitting Provider Nurse Practitioner Gerontology; Emergency Provider Emergency Medicine; Visit Provider Nurse Practitioner Gerontology
DX: N39.0 Urinary tract infection, site not specified (principal); R00.0 Tachycardia, unspecified; D47.3 Essential (hemorrhagic) thrombocythemia; D50.9 Iron deficiency anemia, unspecified; R55 Syncope and collapse; B95.4 Other streptococcus as the cause of diseases classified elsewhere; J02.0 Streptococcal pharyngitis
CPT/HCPCS: 36415; 36591; 71275; 80048; 80053; 80202; 81003; 81015; 82550; 83605; 83690; 84484; 84702; 85025; 86060; 86318; 86663; 86664; 86665; 87040; 87070; 87077; 87086; 87147; 87186; 87400; 87651; 87880; 93005; 96361; 96365; 96366; 96375; 99284; 99285; J1650; J1885; J3370; Q9967